=== PATIENT | female | born 1995 | race Caucasian/White ===

== ENCOUNTER 2021-03-09 17:29 | Emergency (ER) | payer OTHER ==
[~2021-03-09] VITALS: Ht 165.1 cm; Wt 86.6 kg
[~2021-03-09 17:29] MED LIST: NOHOMEMEDICATIONS; ROBAXIN500 MG PO; VICOPROFEN 2001 EACH PO
[2021-03-09 18:17] LABS: ABSOLUTE NEUTROPHILS 4.9 thou/uL (1.4-8.2); BASOPHILS 0.8 % (0.0-2.0); HEMATOCRIT 37.9 % (37.0-47.0); LYMPHOCYTES 25.5 % (24.0-44.0); MCH 29.7 pg (26.0-34.0); MCHC 34.3 g/dL (28.0-37.0); MCV 86.6 fL (80.0-100.0); MONOCYTES 7.8 % (1.0-8.0); PLATELET COUNT 385 thou/uL (150-400); POLYS 61.9 % (36.0-66.0); RBC 4.38 mil/uL (4.20-5.00); RDW 13.8 % (10.5-14.5); WBC 7.9 thou/uL (4.0-11.0)
[2021-03-09 18:18] LABS: URINE BILIRUBIN NEGATIVE (Negative); URINE BLOOD NEGATIVE (Negative); URINE CLARITY CLEAR; URINE COLOR YELLOW; URINE GLUCOSE-RANDOM* NEGATIVE (Negative); URINE KETONES NEGATIVE (Negative); URINE LEUKOCYTES-REFLEX NEGATIVE (Negative); URINE NITRITE-REFLEX NEGATIVE (Negative); URINE PROTEIN (DIPSTICK) NEGATIVE (Negative); URINE SPECIFIC GRAVITY 1.015 (1.005-1.035); URINE UROBILINOGEN 0.2 E.U./dl (0.2-1.0)
[2021-03-09 18:26] LABS: CALCIUM 8.8 mg/dL (8.5-10.1); CREATININE 0.7 mg/dL (0.6-1.0); POTASSIUM 3.8 mmol/L (3.5-5.1)
[2021-03-09 18:35] LABS: ALBUMIN 3.9 g/dL (3.4-5.0); TOTAL BILIRUBIN 0.5 mg/dL (0.2-1.0); TOTAL PROTEIN 7.6 g/dL (6.4-8.2)
[2021-03-09 20:09] VITALS: BP 110/68
--- NOTE | 2021-03-10 07:10 | EKG ---
[place] [address] ITM [facility] [place] [address] ELECTROCARDIOGRAM REPORT Name: DEQUAN DE SOUZA Room #: DEP Adelina#: [id number] Admission: 03/09/21 Attend Phys: Discharge: 03/09/21 Date of : [birth year] Report #: [id number] [facility] ED Test Date: 2021-03-09 Test Time: 17:38:21 Pat Name: DEQUAN DE SOUZA Department: Room: Gender: F Unit Assembler: JASON : 1995 Requested By: Sarah Amaya Order Number: [id number] MD: Darrion Ponce Measurements Intervals Sod Rate: 68 P: 17 TN: 128 QRS: -17 QRSD: 89 T: 0 QT: 415 QTc: 442 Interpretive Statements Sinus rhythm Borderline left axis deviation Borderline T abnormalities, inferior leads No previous ECG available for comparison Electronically Signed On 03-10-2021 7:10:20 CDT by Darrion Ponce [email or web address] <ELECTRONICALLY SIGNED> By: Darrion Ponce MD, [facility] 03/10/21 0710 1738 1738 Darrion Ponce MD, FACC /EPI
== END 2021-03-09 20:09 | disposition home or self-care (01) ==
LOC: ER 17:29
PROVIDERS: Emergency Medicine; Physician Assistant
DX: R42 Dizziness and giddiness (principal); Z20.822 Contact with and (suspected) exposure to COVID-19; F17.210 Nicotine dependence, cigarettes, uncomplicated; E03.9 Hypothyroidism, unspecified; Z98.890 Other specified postprocedural states; Z88.1 Allergy status to other antibiotic agents; Z88.8 Allergy status to other drugs, medicaments and biological substances